=== PATIENT | female | born 1945 | race Caucasian/White ===

== ENCOUNTER 2023-11-19 19:47 | Inpatient (IN) | payer OTHER ==
[~2023-11-19] VITALS: Ht 165.1 cm; Wt 74.9 kg
[~2023-11-19 19:47] MED LIST: FUROSEMIDE40 MG PO; GLIPIZIDE5 MG PO; LACTULOSE10 GM/153 PO; METFORMIN HYD1000 MG PO; NEURONTIN300 MG PO; OMEPRAZOLE40 MG PO; PRAVASTATIN SOD40 MG PO
[2023-11-19 20:00] VITALS: BP 95/66
[2023-11-19] MEDS ORDERED: MORPHINE Sulfate 2 MG/ML SYR IV PRN (20:20)
[2023-11-19] MEDS ORDERED: ATROPINE SULFATE 1% 2 ML BOTTLE SL PRN (20:20)
[2023-11-19] MEDS ORDERED: DIAZEPAM 10 MG/2 ML SYR IV PRN (20:20)
[2023-11-19] MEDS ORDERED: MORPHINE Sulfate 100 MG in SODIUM CHLORIDE 0.9% 90 ML IV SCH (20:30)
[2023-11-19] MEDS ORDERED: SODIUM CHLORIDE 0.9% 500 ML IV SCH (22:10)
[2023-11-20] VITALS: BP 80/57
== END 2023-11-20 17:10 | DRG 441 ==
LOC: 4E 19:47
PROVIDERS: ADMIT Internal Medicine; ATTEND Internal Medicine
DX: K76.82 Hepatic encephalopathy (principal); N17.0 Acute kidney failure with tubular necrosis; E87.1 Hypo-osmolality and hyponatremia; K55.9 Vascular disorder of intestine, unspecified; K70.31 Alcoholic cirrhosis of liver with ascites; E11.65 Type 2 diabetes mellitus with hyperglycemia; K21.9 Gastro-esophageal reflux disease without esophagitis; G62.9 Polyneuropathy, unspecified; E78.2 Mixed hyperlipidemia; D64.9 Anemia, unspecified; Z66 Do not resuscitate; I25.10 Atherosclerotic heart disease of native coronary artery without angina pectoris; Z51.5 Encounter for palliative care